=== PATIENT | female | born 1960 | race Caucasian/White ===

== ENCOUNTER 2022-09-24 12:27 | Outpatient (CLI) | payer OTHER, SELFPAY ==
--- NOTE | ~2022-09-24 | XR_ITS ---
EXAMINATION: XR foot LT standing 2V, XR foot RT standing 2V DATE: 09/24/2022 12:56 INDICATION: Rheumatoid arthritis with rheumatoid factor TECHNIQUE: 1. Weight bearing dorsoplantar and lateral views of the left foot were obtained. 2. Weightbearing dorsoplantar and lateral views of the right foot were obtained. COMPARISON: None. FINDINGS: Mild right and minimal left pes planus. No fractures. Relatively symmetric pattern of polyarticular o steoarthritis at both feet with midfoot predominance characterized by nonuniform joint space narrowin g. This is moderate to severe at the articulations of the bilateral naviculocuneiform articulations a nd small to moderate at the bilateral tarsometatarsal joints. Mild polyarticular osteoarthritis in th e bilateral forefeet. Symmetric periarticular erosions at the first tarsal metatarsal joints at the m edial aspect of the base of the first metatarsal and medial cuneiform consistent with provided histor y of rheumatoid arthritis although differential would also include gout. No other erosions identified . Bilateral large Achilles and plantar calcaneal spurs with multiple enthesopathic ossicles along the proximal plantar aponeurosis, right greater than left. Soft tissues are otherwise unremarkable. No a nkle joint effusions. IMPRESSION: 1. Erosions at the bilateral first tarsal metatarsal joints consistent with provided history of rheum atoid arthritis although differential would include gout. 2. Relative symmetric midfoot predominant polyarticular osteoarthritis, moderate to severe at the amara iculocuneiform articulations which suggests this could be secondary to rheumatoid arthritis. 3. Prominent calcaneal enthesopathic changes. Reviewed, dictated and finalized at location B. IMPRESSION: 1. Erosions at the bilateral first tarsal metatarsal joints consistent with pro vided history of rheumatoid arthritis although differential would include gout. 2. Relative symmetric midfoot predominant polyarticular osteoarthritis, moderat e to severe at the naviculocuneiform articulations which suggests this could be secondary to rheumatoid arthritis. 3. Prominent calcaneal enthesopathic changes.
[2022-09-24 13:45] LABS: Basophils Absolute Auto 0.1 K/mm3 (0.0-0.1); Basophils Percent Auto 0.5 % (0.2-1.2); Eosinophils Absolute Auto 0.2 K/mm3 (0-0.3); Eosinophils Percent Auto 2.5 % (0-4.4); Hematocrit 39.4 % (37.0-47.0); Hemoglobin 11.8 g/dL (12.0-15.0); Immature Granulocyte Absolute 0.03 K/mm3 (0.00-0.031); Immature Granulocyte Percent A 0.3 % (0-0.5); Lymphocytes Absolute Auto 2.34 K/mm3 (0.9-3.2); Lymphocytes Percent Auto 24.1 % (18.3-44.2); Mean Corpuscular HGB Conc 29.9 g/dl (32-36); Mean Corpuscular Hemoglobin 23.5 pg (26-34); Mean Corpuscular Volume 78.5 fl (80-100); Mean Platelet Volume 10.2 fl (7.4-10.4); Monocytes Absolute Auto 0.8 K/mm3 (0.1-0.6); Monocytes Percent Auto 7.9 % (2.6-8.5); Neutrophils Absolute Auto 6.3 K/mm3 (1.3-6.7); Neutrophils Percent Auto 64.7 % (45.5-73.1); Platelet Count Result 389 k/mm3 (150-375); Red Blood Count 5.02 M/mm3 (4.2-5.4); Red Cell Distribution Width 19.8 % (11.5-14.5); White Blood Count 9.7 K/mm3 (4.5-10.0)
[2022-09-24 14:00] LABS: CRP 0.6 mg/dL (<1.0); Uric Acid 7.7 mg/dL (2.5-7.5)
[2022-09-24 14:20] LABS: Erythrocyte Sedimentation Rate 14 mm/hr (0-20)
[2022-09-24 14:51] LABS: Complement C3 133 mg/dL (88-165)
[2022-09-24 15:21] LABS: Rheumatoid Factor > 120.0 IU/ML (<12)
[2022-09-28 15:36] LABS: Anti Cyclic Citrullinated Pept >250 Units (<20)
== END 2022-09-24 12:28 | disposition home or self-care (01) ==
PROVIDERS: PCP Physician Assistant; Visit Provider Internal Medicine
DX: M19.90 Unspecified osteoarthritis, unspecified site (principal); M05.79 Rheumatoid arthritis with rheumatoid factor of multiple sites without organ or systems involvement; M19.072 Primary osteoarthritis, left ankle and foot; M19.071 Primary osteoarthritis, right ankle and foot; M77.32 Calcaneal spur, left foot; M77.31 Calcaneal spur, right foot
CPT/HCPCS: 36415; 73620; 84550; 85025; 85652; 86038; 86140; 86160; 86200; 86430

== ENCOUNTER 2023-03-13 10:40 | Outpatient (CLI) | payer OTHER, SELFPAY ==
[2023-03-13 11:44] LABS: Alanine Aminotransferase 24 U/L (6-35); Albumin Level 4.6 g/dL (3.5-5.1); Alkaline Phosphatase 63 U/L (38-126); Anion Gap 7 mmol/L (8-16); Aspartate Amino Transferase 27 U/L (14-36); Bilirubin,Total 0.5 mg/dL (0.2-1.3); Blood Urea Nitrogen 15 mg/dL (7-17); Calcium 9.8 mg/dL (8.4-10.2); Carbon Dioxide 30 mmol/L (22-30); Chloride 103 mmol/L (98-107); Estimated Glomerular Filt Rate > 60; Glucose 93 mg/dL (65-110); Potassium 4.3 mmol/L (3.4-5.0); Sodium 140 mmol/L (137-145)
== END 2023-03-13 10:41 | disposition home or self-care (01) ==
PROVIDERS: PCP Physician Assistant; Referring Provider Physician Assistant; Visit Provider Internal Medicine
DX: M19.90 Unspecified osteoarthritis, unspecified site (principal); M05.79 Rheumatoid arthritis with rheumatoid factor of multiple sites without organ or systems involvement
CPT/HCPCS: 36415; 80053; 84550

== ENCOUNTER 2023-09-23 11:25 | Outpatient (CLI) | payer OTHER, SELFPAY ==
[2023-09-23 12:14] LABS: Hematocrit 37.6 % (37.0-47.0); Mean Corpuscular HGB Conc 29.3 g/dl (32-36); Mean Corpuscular Hemoglobin 23.6 pg (26-34); Mean Corpuscular Volume 80.7 fl (80-100); Platelet Count Result 281 k/mm3 (150-375); Red Blood Count 4.66 M/mm3 (4.2-5.4); Red Cell Distribution Width 16.9 % (11.5-14.5); White Blood Count 5.5 K/mm3 (4.5-10.0)
[2023-09-23 12:40] LABS: Alanine Aminotransferase 22 U/L (6-35); Albumin Level 4.4 g/dL (3.5-5.1); Alkaline Phosphatase 52 U/L (38-126); Anion Gap 4 mmol/L (8-16); Aspartate Amino Transferase 27 U/L (14-36); Bilirubin,Total 0.6 mg/dL (0.2-1.3); Blood Urea Nitrogen 16 mg/dL (7-17); CRP < 0.5 mg/dL (<1.0); Calcium 9.6 mg/dL (8.4-10.2); Carbon Dioxide 29 mmol/L (22-30); Chloride 105 mmol/L (98-107); Estimated Glomerular Filt Rate > 60; Glucose 98 mg/dL (65-110); Potassium 4.1 mmol/L (3.4-5.0); Sodium 138 mmol/L (137-145); Uric Acid 6.8 mg/dL (2.5-7.5)
[2023-09-23 12:42] LABS: Erythrocyte Sedimentation Rate 21 mm/hr (0-20)
== END 2023-09-23 11:26 | disposition home or self-care (01) ==
PROVIDERS: PCP Physician Assistant; Visit Provider Internal Medicine
DX: M05.79 Rheumatoid arthritis with rheumatoid factor of multiple sites without organ or systems involvement (principal); M19.90 Unspecified osteoarthritis, unspecified site
CPT/HCPCS: 36415; 80053; 84550; 85027; 85652; 86140

== ENCOUNTER 2024-10-26 10:07 | Outpatient (CLI) | payer MEDICARE, OTHER, SELFPAY ==
--- NOTE | ~2024-10-26 | XR_ITS ---
EXAMINATION: XR foot LT 2V DATE: 10/26/2024 10:38 INDICATION: Rheumatoid arthritis. TECHNIQUE: 2 views of left foot were obtained. COMPARISON: Left foot radiographs 09/24/2022 FINDINGS: Alignment is normal. No fracture. There is mild osteoarthrosis of some of the midfoot joint s and interphalangeal joints. There are enthesophytes at the posterior and plantar aspects of calcane al tuberosity. IMPRESSION: 1. Mild polyarticular osteoarthritis. Reviewed, dictated and finalized at location A. VERER
--- NOTE | ~2024-10-26 | XR_ITS ---
Right foot Technique: AP and lateral views were obtained. Clinical History: Rheumatoid arthritis COMPARISON: 09/24/2022 Findings: No acute fracture or dislocation is seen. Osseous alignment is anatomic. Joint stable focal erosions at the first tarsometatarsal joint. Mild osteoarthritic changes in the interphalangeal join ts are present. There is degenerative change at the naviculocuneiform articulation and remaining tars ometatarsal joints.. Plantar calcaneal spur present, with heterotopic ossification along the proximal plantar fascia, unchanged. Impression: Stable focal erosions at the first TMT joint. Additional polyarticular osteophytic changes similar to prior exam. Stable plantar calcaneal spur and heterotopic ossification along the proximal plantar fascia. Reviewed, dictated and finalized at location . [facility] Impression: Stable focal erosions at the first TMT joint. Additional polyarticular osteophytic changes similar to prior exam. Stable plantar calcaneal spur and heterotopic ossification along the proximal p lantar fascia.
== END 2024-10-26 10:08 | disposition home or self-care (01) ==
PROVIDERS: PCP Physician Assistant; Visit Provider Internal Medicine
DX: M06.872 Other specified rheumatoid arthritis, left ankle and foot (principal); M06.871 Other specified rheumatoid arthritis, right ankle and foot; M77.31 Calcaneal spur, right foot
CPT/HCPCS: 73620

== ENCOUNTER 2025-05-12 09:02 | Outpatient (CLI) | payer MEDICARE, OTHER, SELFPAY ==
--- NOTE | ~2025-05-12 | MR_ITS ---
MRI of the right foot Clinical History: Pain Technique: Sagittal T1-weighted and STIR images, axial proton-density and proton-density fat-sat imag es, and coronal T1-weighted and proton-density fat-sat images were performed. Findings: No acute fracture or dislocation seen. No suspicious marrow edema or periosteal reaction se en. No evidence for osteomyelitis. There is nonspecific amorphous marrow edema in the inferior aspect of the second metatarsal head, which could reflect reactive marrow edema or contusion. No other sign ificant marrow edema identified. There are minimal degenerative changes scattered in the interphalang eal joints of the toes. No significant joint effusion identified. Probable mild intermetatarsal bursitis at the first interspace. No definite neuroma evident. Flexor a nd extensor tendons appear intact. No soft tissue mass or fluid collection evident. IMPRESSION: Nonspecific marrow edema at the second metatarsal head. Correlate for reactive marrow edema/stress re sponse or bone contusion. Probable intermetatarsal bursitis of the first interspace. Minimal degenerative changes of interphalangeal joints of the toes. Reviewed, dictated and finalized at [facility]. IMPRESSION: Nonspecific marrow edema at the second metatarsal head. Correlate for reactive marrow edema/stress response or bone contusion. Probable intermetatarsal bursitis of the first interspace. Minimal degenerative changes of interphalangeal joints of the toes.
== END 2025-05-12 09:03 | disposition home or self-care (01) ==
LOC: MICIMG 09:03
PROVIDERS: PCP Physician Assistant; Visit Provider Internal Medicine
DX: R93.6 Abnormal findings on diagnostic imaging of limbs (principal); M79.671 Pain in right foot
CPT/HCPCS: 73718